=== PATIENT | male | born 1960 | race American Indian/Alaskan Native ===

== ENCOUNTER 2017-02-08 13:10 | Emergency (ER) | payer MEDICARE, OTHER ==
[2017-02-08 13:24] VITALS: BP 122/70
[2017-02-08 20:22] LABS: Basophils % (Auto) 0.4 % (0.0-1.8); Eosinophils % (Auto) 2.5 % (0.0-4.3); Hemoglobin 9.9 gm/dl (11.8-15.2); Mean Corpuscular HGB Conc 32 % (32-34); Mean Corpuscular Volume 78 fl (84-94); Platelet Count 310 K/mm3 (140-440); Red Blood Count 3.98 M/mm3 (3.65-5.03); White Blood Count 4.5 K/mm3 (4.5-11.0)
[2017-02-08 20:25] LABS: Mean Corpuscular Hemoglobin 25 pg (28-32); Red Cell Distribution Width 20.2 % (13.2-15.2)
[2017-02-08 20:36] LABS: Alanine Aminotransferase 7 units/L (7-56); Albumin 2.8 g/dL (3.9-5); Albumin/Globulin Ratio 0.6 %; Alkaline Phosphatase 71 units/L (35-129); Anion Gap 17 mmol/L; BUN/Creatinine Ratio 13; Blood Urea Nitrogen 10 mg/dL (9-20); Calcium 8.3 mg/dL (8.4-10.2); Carbon Dioxide 25 mmol/L (22-30); Chloride 104.2 mmol/L (98-107); Glucose 107 mg/dL (75-100); Potassium 3.7 mmol/L (3.6-5.0); Sodium 142 mmol/L (137-145); Total Protein 7.7 g/dL (6.3-8.2)
== END 2017-02-08 22:45 | disposition left against medical advice (07) ==
LOC: ED 13:10
DX: R10.9 Unspecified abdominal pain (principal); Z53.21 Procedure and treatment not carried out due to patient leaving prior to being seen by health care provider
CPT/HCPCS: 36415; 80053; 85025